=== PATIENT | female | born 1970 | race Caucasian/White ===

== ENCOUNTER 2025-07-02 08:30 | Outpatient (RCR) | payer BC, SELFPAY | END 2025-07-13 17:27 | disposition home or self-care (01) | PROVIDERS: PCP Family Medicine; Visit Provider Family Medicine | DX: M25.561 Pain in right knee (principal); G89.29 Other chronic pain; Z51.89 Encounter for other specified aftercare | CPT/HCPCS: 97110; 97112; 97161 ==